=== PATIENT | female | born 1995 | race American Indian/Alaskan Native ===

== ENCOUNTER 2020-09-21 16:33 | Emergency (ER) | payer MEDICAID ==
[2020-09-21] MEDS ORDERED: ONDANSETRON 4 MG ODT TAB PO ONE (16:55)
[2020-09-21 17:11] LABS: Basophils # (Auto) 0.1 K/mm3 (0.0-0.1); Basophils % (Auto) 0.5 % (0.0-1.8); Eosinophils # (Auto) 0.1 K/mm3 (0.0-0.4); Eosinophils % (Auto) 0.6 % (0.0-4.3); Hematocrit 32.2 % (30.3-42.9); Lymphocytes # (Auto) 1.3 K/mm3 (1.2-5.4); Lymphocytes % (Auto) 13.4 % (13.4-35.0); Mean Corpuscular HGB Conc 34 % (30-34); Mean Corpuscular Volume 73 fl (79-97); Monocytes # (Auto) 0.8 K/mm3 (0.0-0.8); Monocytes % (Auto) 8.5 % (0.0-7.3); Platelet Count 272 K/mm3 (140-440); Red Blood Count 4.42 M/mm3 (3.65-5.03); Red Cell Distribution Width 19.6 % (13.2-15.2)
--- NOTE | 2020-09-21 17:28 | Emergency Department Report ---
ED N/V/D HPI - General Chief complaint: Nausea/Vomiting/Diarrhea Stated complaint: EMESIS Source: patient Mode of arrival: Ambulatory Limitations: No Limitations - History of Present Illness Initial comments: Patient is a A0 25-year-old -[place]ammar[place] female who is approximately 5 weeks gestation and presents to the ED with complaint of acute onset persistent intractable nausea and vomiting for the last 1 week, worse in the last 2 days. Patient states that she has not been able to keep anything down in the last 24 hours. Patient states that the last time she had vomiting was 1 hour prior to arrival in the ED. Patient states that she has not been able to follow-up with any DIRECTOR SECUR[employer]ISK MANAGEMENT physician since she found out that she was after missing her menstrual cycle 1 month ago. Patient denies abdominal pain, vaginal bleeding, dysuria, urinary frequency and urgency, fever, chills, diarrhea, chest pain or shortness of breath, sore throat, headache, syncope or vaginal discharge and low back pain. MD complaint: nausea, vomiting, other (tested positive for ) -: Sudden, days(s) (5) Description of Vomiting: food contents Associated Abdominal Pain: No Location: diffuse Radiation: none Severity: moderate Pain Scale: 0 Quality: dull Consistency: intermittent Improves with: none Worsens with: none Context: other ( related) Associated Symptoms: denies other symptoms, nausea/vomiting. denies: myalgias, chest pain, cough, diaphoresis, fever/chills, headaches, loss of appetite, malaise, rash, dysuria, shortness of breath, syncope, weakness - Related Data Previous Rx's Medication Instructions Recorded Last Taken Type Famotidine [Pepcid] 20 mg PO BID #60 tablet 09/21/20 Unknown Rx Promethazine [Phenergan] 25 mg PO Q8HR PRN #30 tab 09/21/20 Unknown Rx Allergies Allergy/AdvReac Type Severity Reaction Status Date / Time No Known Allergies Allergy Verified 10/22/19 23:50 ED Review of Systems ROS: Stated complaint: EMESIS Other details as noted in HPI Constitutional: denies: chills, fever Eyes: denies: eye pain, eye discharge, vision change ENT: denies: ear pain, throat pain Respiratory: denies: cough, shortness of breath, wheezing Cardiovascular: denies: chest pain, palpitations Endocrine: no symptoms reported Gastrointestinal: nausea, vomiting. denies: abdominal pain, diarrhea, constipation, hematemesis, hematochezia Genitourinary: denies: urgency, dysuria, discharge Musculoskeletal: denies: back pain, joint swelling, arthralgia Skin: denies: rash, lesions Neurological: denies: headache, weakness, paresthesias Psychiatric: denies: anxiety, depression Hematological/Lymphatic: denies: easy bleeding, easy bruising ED Past Medical Hx - Past Medical History Previous Medical History?: No - Surgical History Past Surgical History?: Yes Additional Surgical History: mouth surgery - Social History Smoking Status: Never Smoker Substance Use Type: None - Medications Home Medications: Home Medications Medication Instructions Recorded Confirmed Last Taken Type Famotidine [Pepcid] 20 mg PO BID #60 tablet 09/21/20 Unknown Rx Promethazine [Phenergan] 25 mg PO Q8HR PRN #30 tab 09/21/20 Unknown Rx ED Physical Exam - General Limitations: No Limitations General appearance: alert, in no apparent distress - Head Head exam: Present: atraumatic, normocephalic, normal inspection - Eye Eye exam: Present: normal appearance, PERRL, EOMI Pupils: Present: normal accommodation - ENT ENT exam: Present: normal exam, normal orophraynx, mucous membranes moist, TM's normal bilaterally, normal external ear exam - Neck Neck exam: Present: normal inspection, full ROM - Respiratory Respiratory exam: Present: normal lung sounds bilaterally. Absent: respiratory distress, wheezes, rales, rhonchi, stridor, chest wall tenderness, accessory muscle use, decreased breath sounds, prolonged expiratory - Cardiovascular Cardiovascular Exam: Present: regular rate, normal rhythm, normal heart sounds. Absent: systolic murmur, diastolic murmur, rubs, gallop - GI/Abdominal GI/Abdominal exam: Present: soft, normal bowel sounds. Absent: tenderness, guarding, rebound, hyperactive bowel sounds, hypoactive bowel sounds, organomegaly, mass - Extremities Exam Extremities exam: Present: normal inspection, full ROM, normal capillary refill - Back Exam Back exam: Present: normal inspection, full ROM. Absent: tenderness, CVA tende rness (R), CVA tenderness (L), muscle spasm, paraspinal tenderness, vertebral tenderness - Neurological Exam Neurological exam: Present: alert, oriented X3, CN II-XII intact, normal gait, reflexes normal - Psychiatric Psychiatric exam: Present: normal affect, normal mood - Skin Skin exam: Present: warm, dry, intact, normal color. Absent: rash ED Course Vital Signs 09/21/20 16:49 Temperature 98.7 F Pulse Rate 78 Respiratory 16 Rate Blood Pressure 122/73 [Right] O2 Sat by Pulse 98 Oximetry ED Medical Decision Making - Lab Data Result diagrams: 09/21/20 17:01 09/21/20 17:01 - Medical Decision Making This is a A0 25-year-old -[place] female who is approximately 5 weeks gestation and presents to the ED with complaint of acute onset persistent intractable nausea and vomiting for the last 1 week, worse in the last 2 days. Patient states that she has not been able to keep anything down in the last 24 hours. Patient states that the last time she had vomiting was 1 hour prior to arrival in the ED. Patient states that she has not been able to follow-up with any [employer] physician since she found out that she was after missing her menstrual cycle 1 month ago. In the ED, patient is alert and oriented x3 and is not in any distress with normal vital signs. Lab test results were reviewed and showed acute hyponatremia of 131 mmol/L, mild hypokalemia of 3.5 mmol/L and mild hypochloremia of 95.5 mmol/L. The hCG quant was 58344.00. Patient was treated for nausea and vomiting in the ED and also given normal saline 1 L IV bolus x1. On reevaluation, patient passed all oral fluid challenges in the ED. Based on the history and physical exam findings as well as lab test results, patient symptoms are likely due to hyperemesis gravidarum due to her newly diagnosed positive test. Patient was therefore discharged home on antiemetics and was advised to maintain a clear liquid diet for 12 to 24 hours, and to follow-up with [employer]OR [employer]NAG[employer] physician in 3 to 5 days for reevaluation or return to the ED immediately if symptoms get worse. - Differential Diagnosis Hyperemesis gravidarum; Nausea and vomiting; UTI; Critical care attestation.: If time is entered above; I have spent that time in minutes in the direct care of this critically ill patient, excluding procedure time. ED Disposition Clinical Impression: Nausea and vomiting in adult, Hyperemesis gravidarum Disposition: DC- TO HOME OR SELFCARE Is pt being admited?: No Does the pt Need Aspirin: No Condition: Stable Instructions: Nausea and Vomiting, Adult, [id number], Morning Sickness, [id number] Additional Instructions: All lab test results were reviewed and are all nonactionable. Your hCG quant was 83,130 and this corresponds to approximately 7 to 8 weeks gestation. Therefore take medications with food, drink plenty of fluids and follow-up with your [employer]NAG[employer] physician in 3 to 5 days for reevaluation. Return to the ED immediately if symptoms get worse. Prescriptions: Famotidine [Pepcid] 20 mg PO BID #60 tablet Promethazine [Phenergan] 25 mg PO Q8HR PRN #30 tab PRN Reason: Nausea Referrals: SANDRA FLOWERS MD [Staff Physician] - 3-5 Days Time of Disposition: 19:31 Print Language: SETSWANA
[2020-09-21 17:34] LABS: Alanine Aminotransferase 11 units/L (7-56); Albumin 3.9 g/dL (3.9-5); Blood Urea Nitrogen 11 mg/dL (7-17); Calcium 9.4 mg/dL (8.4-10.2); Hemolysis Index 1
[2020-09-21 17:36] LABS: BUN/Creatinine Ratio 22
[2020-09-21] MEDS ORDERED: PROCHLORPERAZINE EDISYLATE 10 MG/2 ML VIAL IV ONE (19:24)
[2020-09-21] MEDS ORDERED: SODIUM CHLORIDE 0.9% 1000 ML 1,000 ML IV ONE (19:24)
[2020-09-21 19:35] LABS: Bacteria,Urine 1+ /HPF (Negative); Bilirubin,Urine NEG (Negative); Blood,Urine NEG (Negative); Color,Urine Yellow (Yellow); Mucus,Urine 2+ /HPF
[2020-09-21 21:16] VITALS: BP 123/72
== END 2020-09-21 20:45 | disposition home or self-care (01) ==
LOC: ED 16:33
DX: O21.0 Mild hyperemesis gravidarum (principal); Z79.899 Other long term (current) drug therapy; Z3A.01 Less than 8 weeks gestation of pregnancy; Z98.890 Other specified postprocedural states
CPT/HCPCS: 36415; 80053; 81001; 84702; 85025; 96361; 96374; 99283; J0780; J7030; Q0162

== ENCOUNTER 2020-10-31 16:47 | Emergency (ER) | payer MEDICAID ==
[2020-10-31 17:12] VITALS: BP 127/77
[2020-10-31 17:51] LABS: Basophils % (Auto) 0.4 % (0.0-1.8); Eosinophils # (Auto) 0.1 K/mm3 (0.0-0.4); Eosinophils % (Auto) 1.1 % (0.0-4.3); Hematocrit 33.3 % (30.3-42.9); Mean Corpuscular HGB Conc 33 % (30-34); Mean Corpuscular Volume 76 fl (79-97); Monocytes # (Auto) 0.7 K/mm3 (0.0-0.8); Monocytes % (Auto) 7.5 % (0.0-7.3); Platelet Count 255 K/mm3 (140-440); Red Blood Count 4.38 M/mm3 (3.65-5.03); Red Cell Distribution Width 19.4 % (13.2-15.2)
--- NOTE | 2020-10-31 18:03 | Emergency Department Report ---
ED Female HPI - General Chief complaint: Vaginal Bleeding Stated complaint: VAGINA BLEEDING/14WKS PREG Time Seen by Provider: 10/31/20 17:33 Source: patient Mode of arrival: Ambulatory Limitations: No Limitations - History of Present Illness MD Complaint: vaginal bleeding -: days(s) (1) Radiation: non-radiating Severity: mild Severity scale (0 -10): 0 Quality: dull Consistency: constant Improves with: none Are you Now?: Yes (14 weeks under the care of primary SECURITY GUARD DISPATCHER) Associated Symptoms: vaginal bleeding. denies: abdominal pain, nausea/vomiting, shortness of breath, syncope - Related Data Previous Rx's Medication Instructions Recorded Last Taken Type Famotidine [Pepcid] 20 mg PO BID #60 tablet 09/21/20 Unknown Rx Promethazine [Phenergan] 25 mg PO Q8HR PRN #30 tab 09/21/20 Unknown Rx Allergies Allergy/AdvReac Type Severity Reaction Status Date / Time No Known Allergies Allergy Verified 10/22/19 23:50 ED Review of Systems ROS: Stated complaint: VAGINA BLEEDING/14WKS PREG Other details as noted in HPI Comment: All other systems reviewed and negative ED Past Medical Hx - Past Medical History Previous Medical History?: No - Surgical History Past Surgical History?: Yes Additional Surgical History: mouth surgery - Social History Smoking Status: Never Smoker Substance Use Type: None - Medications Home Medications: Home Medications Medication Instructions Recorded Confirmed Last Taken Type Famotidine [Pepcid] 20 mg PO BID #60 tablet 09/21/20 Unknown Rx Promethazine [Phenergan] 25 mg PO Q8HR PRN #30 tab 09/21/20 Unknown Rx ED Physical Exam - General Limitations: No Limitations General appearance: alert, in no apparent distress - Head Head exam: Present: atraumatic, normocephalic - Eye Eye exam: Present: normal appearance, PERRL, EOMI, scleral icterus Pupils: Present: normal accommodation - ENT ENT exam: Present: normal exam, normal orophraynx, mucous membranes moist, TM's normal bilaterally - Neck Neck exam: Present: normal inspection - Respiratory Respiratory exam: Present: normal lung sounds bilaterally. Absent: respiratory distress - Cardiovascular Cardiovascular Exam: Present: regular rate, normal rhythm. Absent: systolic murmur, diastolic murmur, rubs, gallop - GI/Abdominal GI/Abdominal exam: Present: soft, normal bowel sounds - Extremities Exam Extremities exam: Present: normal inspection - Back Exam Back exam: Present: normal inspection - Neurological Exam Neurological exam: Present: alert, oriented X3 - Psychiatric Psychiatric exam: Present: normal affect, normal mood - Skin Skin exam: Present: warm, dry, intact, normal color. Absent: rash ED Course Vital Signs 10/31/20 17:11 Temperature 99.1 F Pulse Rate 93 H Respiratory 16 Rate Blood Pressure 127/77 O2 Sat by Pulse 100 Oximetry ED Medical Decision Making - Lab Data Result diagrams: 10/31/20 17:39 - Radiology Data Radiology results: report reviewed [address] [place] [id number] Ultrasound Report Signed Patient: ALLYSON CORDERO MR#: [id number] : 1995 Acct:[id number] Age/Sex: 25 / F ADM Date: 10/31/20 Loc: ED Attending Dr: Ordering Physician: CLARITA PAINTING Date of Service: 10/31/20 Procedure(s): US OB <= 14 weeks fetus Accession Number(s): [id number] cc: CLARITA PAINTING ULTRASOUND OBSTETRIC INDICATION / CLINICAL INFORMATION: Vaginal bleeding. TECHNIQUE: Transabdominal. COMPARISON: None available. FINDINGS: GESTATIONAL SAC: Well-defined oval shape and intrauterine in location. YOLK SAC: No significant abnormality. EMBRYO/FETUS: No significant abnormality. - [place]-Rump Length = 8.9 cm = 14 weeks, 5 day(s). - Heart Rate, beats per minute (if present) = 157 ADNEXA: No significant abnormality. FREE FLUID: None. ADDITIONAL FINDINGS: None. IMPRESSION: 1. Single, living intrauterine with estimated sonographic age of 14 weeks, 5 day(s). Signer Name: sIsa Martinez MD Signed: 10/31/2020 7:40 PM Workstation Name: [id number] Transcribed By: TL Dictated By: Issa Martinez MD Electronically Authenticated By: Issa Martinez MD Signed Date/Time: 10/31/201939 DD/ 38 TD/TT: Print Cancel - Medical Decision Making This patient presents with vaginal bleeding in the first trimester, d ifferential diagnosis includes ectopic , IUP, month threatened/inevitable , along with a completed . Patient is HDS and without a history of coagulopathy or infectious symptoms. The ultrasound does reveal an IUP at 14 weeks with an elevated hCG quant Based on exam history and ED work-up patient presentation is not consistent with an ectopic , life-threatening coagulopathy, trauma, serious bacterial infection, central process or other emergency Critical care attestation.: If time is entered above; I have spent that time in minutes in the direct care of this critically ill patient, excluding procedure time. ED Disposition Clinical Impression: Vaginal bleeding in patient after first trimester Disposition: DC-01 TO HOME OR SELFCARE Is pt being admited?: No Does the pt Need Aspirin: No Condition: Stable Instructions: Activity Restriction During , Threatened Miscarriage, Vaginal Bleeding During , First Trimester Additional Instructions: Your ultrasound was normal. To be sure to follow-up with your SECURITY GUARD DISPATCHER for further evaluation and treatment options and recheck with an 3 to 4 days Referrals: [facility] [Provider Group] - 3-5 Days
[2020-10-31 18:05] LABS: INR 0.9 (0.87-1.13)
[2020-10-31 18:06] LABS: Bilirubin,Urine NEG (Negative); Blood,Urine LG (Negative); Color,Urine Amber (Yellow); Mucus,Urine 1+ /HPF
--- NOTE | 2020-10-31 19:45 | Ultrasound Report ---
ULTRASOUND OBSTETRIC INDICATION / CLINICAL INFORMATION: Vaginal bleeding. TECHNIQUE: Transabdominal. COMPARISON: None available. FINDINGS: GESTATIONAL SAC: Well-defined oval shape and intrauterine in location. YOLK SAC: No significant abnormality. EMBRYO/FETUS: No significant abnormality. - [place]-Rump Length = 8.9 cm = 14 weeks, 5 day(s). - Heart Rate, beats per minute (if present) = 157 ADNEXA: No significant abnormality. FREE FLUID: None. ADDITIONAL FINDINGS: None. IMPRESSION: 1. Single, living intrauterine with estimated sonographic age of 14 weeks, 5 day(s). Signer Name: Issa Martinez MD Signed: 10/31/2020 7:40 PM Workstation Name: [id number]
== END 2020-10-31 20:50 | disposition home or self-care (01) ==
LOC: ED 16:47
DX: O20.8 Other hemorrhage in early pregnancy (principal); Z3A.14 14 weeks gestation of pregnancy; Z98.890 Other specified postprocedural states; Z79.899 Other long term (current) drug therapy
CPT/HCPCS: 36415; 76801; 76805; 81001; 84702; 85025; 85610; 87086